=== PATIENT | female | born 1980 | race Caucasian/White ===

== ENCOUNTER → 2018-04-14 | Outpatient (CLI) | payer MEDICAID ==
[2018-02-08 11:19] VITALS: BP 118/91
[~2018-04-14] MED LIST: APIX5TAB PO; BREO ELLIPTA 11 EACH IH; GUAI5SYR PO; Pantoprazole PO
== END | disposition home or self-care (01) ==
LOC: LAB 14:57
PROVIDERS: ATTEND Internal Medicine Critical Care Medicine
DX: I26.99 Other pulmonary embolism without acute cor pulmonale (principal)
CPT/HCPCS: 36415; 85220; 86147

== ENCOUNTER → 2018-05-11 | Outpatient (CLI) | payer MEDICAID ==
[2018-02-08 11:19] VITALS: BP 118/91
[~2018-05-11] MED LIST changes: +AMOX500T PO
--- NOTE | 2018-05-11 15:59 | CARD ---
MR#: [id number] Date of Study: 05/11/2018 Ordering Physician: JAQUELINE CORDON, Referring Physician: JAQUELINE CORDON, Tech: Rosalba Alonzo [facility] APPROVED REPORT EXAM: LIMITED Two-dimensional and M-mode echocardiogram. Other Information Quality : AverageHR: 97bpm Rhythm : NSR INDICATION Follow up RVE post PE in 01/2018 2D DIMENSIONS RVDd3.3 (2.9-3.5cm)IVSd1.1 (0.7-1.1cm) Aortic Root(2D)3.3 (2.0-3.7cm)LVDd4.5 (3.9-5.9cm) PWd0.9 (0.7-1.1cm)LVDs3.2 (2.5-4.0cm) FS (%) 28.1 %SV50.4 ml LVEF(%)54.4 (>50%) LEFT VENTRICLE The left ventricle is normal size. Proximal septal thickening is noted. The left ventricular systolic function is normal. The Ejection Fraction is 55-60%. There is normal LV segmental wall motion. RIGHT VENTRICLE The right ventricle is borderline dilated. There is normal right ventricular wall thickness. The righ t ventricular systolic function is normal. ATRIA The left atrium size is normal. The right atrium size is normal. The interatrial septum is intact wit h no evidence for an atrial septal defect or patent foramen ovale as noted on 2-D or Doppler imaging. AORTIC VALVE The aortic valve is normal in structure and function. The aortic valve is trileaflet. MITRAL VALVE The mitral valve is normal in structure and function. There is no evidence of mitral valve prolapse. There is no mitral valve stenosis. TRICUSPID VALVE The tricuspid valve is normal in structure and function. Doppler and Color Flow revealed no tricuspid valve regurgitation noted. There is no tricuspid valve prolapse or vegetation. There is no tricuspid valve stenosis. GREAT VESSELS The aortic root is normal in size. The IVC is normal in size and collapses >50% with inspiration. PERICARDIAL EFFUSION There is no evidence of significant pericardial effusion. Critical Notification Critical Value: No <Conclusion> Limited 2D echo to assess RV function. The left ventricular systolic function is normal. The Ejection Fraction is 55-60%. There is normal LV segmental wall motion. The right ventricle is borderline dilated. There is no evidence of significant pericardial effusion. Signed by : Micah Alanis, Electronically Approved : 05/11/2018 15:58:38
== END | disposition home or self-care (01) ==
LOC: ECHO 13:58
PROVIDERS: ATTEND Internal Medicine Cardiovascular Disease
DX: I51.7 Cardiomegaly (principal)
CPT/HCPCS: 93308

== ENCOUNTER 2018-07-29 20:11 | Emergency (ER) | payer MEDICAID ==
[~2018-07-29] VITALS: Ht 172.7 cm; Wt 136.1 kg
[~2018-07-29 20:11] MED LIST changes: -AMOX500T PO
[2018-07-29 20:13] VITALS: BP 145/95
--- NOTE | 2018-07-29 21:09 | PHYS DOC ---
Past Medical History Past Medical History: Asthma, Fibromyalgia Additional Past Medical Histor: OSTEOARTHRITIS, CPD (LOPEZ MALDONADO) Past Surgical History: Appendectomy, Tonsillectomy (LOPEZ MALDONADO) Alcohol Use: Occasionally Drug Use: Marijuana (LOPEZ MALDONADO) Adult General Chief Complaint Chief Complaint: DENTAL PROBLEM HPI HPI Patient is a 37 year old female who presents with L upper dental pain that progressively worsened today while at work. She does not currently have a dentist. (LOPEZ MALDONADO) Review of Systems Review of Systems Constitutional: Denies fever or chills HENT: Reports L dental pain. Respiratory: Denies cough or shortness of breath Cardiovascular: Denies chest pain. GI: Denies abdominal pain, nausea, vomiting, bloody stools or diarrhea Musculoskeletal: Denies back pain or joint pain Integument: Denies rash or skin lesions Neurologic: Denies headache, focal weakness or sensory changes All other systems were reviewed and found to be within normal limits, except as documented in this note. (LOPEZ MALDONADO) Current Medications Current Medications Current Medications Medications (Trade) Dose Ordered Sig/Gavin Start Time Stop Time Status Last Admin Dose Admin Amoxicillin (Amoxil) 1,000 mg 1X ONCE 07/29/18 21:15 07/29/18 21:16 DC 07/29/18 21:23 1,000 MG Ibuprofen (Motrin) 800 mg 1X ONCE 07/29/18 21:15 07/29/18 21:16 DC 07/29/18 21:23 800 MG (BRIAN TITUS DO) Allergies Allergies Allergies Coded Allergies Type Severity Reaction Last Updated Verified Sulfa (Sulfonamide Antibiotics) Allergy Intermediate 02/04/18 Yes clavulanic acid Allergy Intermediate 02/04/18 Yes doxycycline Allergy Intermediate 02/04/18 Yes sertraline Allergy Intermediate 02/04/18 Yes (BRIAN TITUS DO) Physical Exam Physical Exam Constitutional: Well developed, well nourished, no acute distress, non-toxic appearance. HENT: Normocephalic, atraumatic, L upper tooth tenderness with carious appearing tooth and mild gum induration. No abscess noted. Neck: Normal range of motion, no tenderness, supple, no stridor. Cardiovascular:Heart rate regular rhythm, no murmur Lungs & Thorax: Bilateral breath sounds clear to auscultation Abdomen: Bowel sounds normal, soft, no tenderness, no masses, no pulsatile masses. Skin: Warm, dry, no erythema, no rash. Back: No tenderness, no CVA tenderness. Extremities: No tenderness, no cyanosis, no clubbing, ROM intact, no edema. Neurologic: Alert and oriented X 3, normal motor function, normal sensory function, no focal deficits noted. Psychologic: Affect normal, judgement normal, mood normal. (LOPEZ MALDONADO) Current Patient Data Vital Signs Vital Signs Date Time Temp Pulse Resp B/P (MAP) Pulse Ox O2 Delivery O2 Flow Rate FiO2 07/29/18 20:13 98.8 109 18 145/95 (112) 99 Room Air 98.8 (BRIAN TITUS DO) EKG EKG [] (LOPEZ MALDONADO) Radiology/Procedures Radiology/Procedures [] (LOPEZ MALDONADO) Course & Med Decision Making Course & Med Decision Making Pertinent Labs and Imaging studies reviewed. (See chart for details) Pt to increase dental hygiene regimen and follow up closely with dentist. (LOPEZ MALDONADO) Dragon Disclaimer Dragon Disclaimer This electronic medical record was generated, in whole or in part, using a voice recognition dictation system. (LOPEZ MALDONADO) Departure Departure Impression: Primary Impression: Dental abscess Disposition: 01 HOME, SELF-CARE Condition: STABLE Referrals: NEELAM CARRASQUILLO MD (PCP) Patient Instructions: Dental Abscess Additional Instructions: Rinse mouth with mouth wash or salt water gargles after eating. Call to scheduled follow up with dentist. Scripts Amoxicillin (AMOXICILLIN) 500 Mg Tablet 2 TAB PO BID, #40 TAB Prov: LOPEZ MALDONADO 07/29/18 Attending Signature Attending Signature I have reviewed the PA/PATROL MOTHER's note and plan of care. I was available for consultation as needed during the patient's visit in the emergency department. I agree with the clinical impression, plan, and disposition. (BRIAN TITUS DO) LOPEZ MALDONADO July 29, 2018 21:09 BRIAN TITUS DO August 03, 2018 14:32
[2018-07-29] MEDS ORDERED: AMOX500T PO (21:11)
[2018-07-29] MEDS ORDERED: IBUPROFEN 400 MG TABLET. PO ONE (21:15)
[2018-07-29] MEDS ORDERED: AMOXICILLIN 250 MG CAPSULE. PO ONE (21:15)
== END 2018-07-29 21:24 | disposition home or self-care (01) ==
LOC: ER 20:11
DX: K04.7 Periapical abscess without sinus (principal); J45.909 Unspecified asthma, uncomplicated; Z88.1 Allergy status to other antibiotic agents; Z88.2 Allergy status to sulfonamides; Z88.8 Allergy status to other drugs, medicaments and biological substances
CPT/HCPCS: 99283

== ENCOUNTER 2019-02-06 21:34 | Emergency (ER) | payer MEDICAID ==
[~2019-02-06] VITALS: Ht 175.3 cm; Wt 136.1 kg
[~2019-02-06 21:34] MED LIST changes: +AMOX500T PO
[2019-02-06 22:40] LABS: BASO % 0 % (0-3); EOS # 0.1 x10^3/uL (0.0-0.7); EOS % 1 % (0-3); HEMOGLOBIN 13.6 g/dL (12.0-15.5); LYMPH # 4.7 x10^3/uL (1.0-4.8); LYMPH % 39 % (24-48); MEAN CORPUSCULAR HEMOGLOBIN 30 pg (25-35); MEAN CORPUSCULAR HGB CONC 34 g/dL (31-37); MEAN CORPUSCULAR VOLUME 89 fL (79-100); MONO # 0.6 x10^3/uL (0.0-1.1); MONO % 5 % (0-9); NEUT # 6.6 x10^3/uL (1.8-7.7); NEUT % 55 % (31-73); PLATELET COUNT 329 x10^3/uL (140-400); RED BLOOD COUNT 4.49 x10^6/uL (3.50-5.40); RED CELL DISTRIBUTION WIDTH 13.2 % (11.5-14.5); WHITE BLOOD COUNT 12.1 x10^3/uL (4.0-11.0)
[2019-02-06 22:47] LABS: PROTHROMBIN TIME PATIENT 11.9 SEC (11.7-14.0)
[2019-02-06 22:50] LABS: CREATININE 0.9 mg/dL (0.6-1.0); GFR 69.3
[2019-02-06 22:54] LABS: D-DIMER 0.5 ug/mlFEU (0.00-0.50)
[2019-02-06 22:56] LABS: ALBUMIN 3.3 g/dL (3.4-5.0); ALBUMIN/GLOBULIN RATIO 0.9 (1.0-1.7); TOTAL BILIRUBIN 0.2 mg/dL (0.2-1.0); TOTAL PROTEIN 6.9 g/dL (6.4-8.2)
[2019-02-06] MEDS ORDERED: CONTRAST GIVEN. MC PRN (23:15)
[2019-02-06] MEDS ORDERED: IOHEXOL 350 MG/ML 100 ML VIAL. IV ONE (23:30)
--- NOTE | 2019-02-07 00:25 | RAD ---
CTA scan of the Chest with Contrast (Pulmonary Embolism protocol) 02/06/2019 Clinical History: Shortness of breath. Tachycardia Technique: After the intravenous administration of 100 cc of Omnipaque 350, contiguous, 0.625 mm axial sections were obtained through the chest. 2 mm axial and 3D MIP coronal and sagittal reconstructed images were obtained. One or more of the following individualized dose reduction techniques were utilized for this study: 1. Automated exposure control. 2. Adjustment of the mA and/or kV according to patient size. 3. Use of iterative reconstruction technique. Findings: No filling defect is seen within the major branches of either pulmonary artery. There is no CT evidence of pulmonary embolism. The heart and thoracic aorta are within normal limits. Minimal dependent subsegmental atelectasis is seen involving both lungs. No area of consolidation, pleural effusion or pneumothorax is seen. Impression: There is no CT evidence of pulmonary embolism. Electronically signed by: Timmy Cook MD (02/07/2019 12:22 AM) [facility]
[2019-02-07 00:40] VITALS: BP 118/59
--- NOTE | 2019-02-07 00:55 | PHYS DOC ---
Past Medical History Past Medical History: Asthma, Fibromyalgia Additional Past Medical Histor: OSTEOARTHRITIS, CPD Past Surgical History: Appendectomy, Tonsillectomy Alcohol Use: Occasionally Drug Use: Marijuana Adult General Chief Complaint Chief Complaint: CHEST PAIN HPI HPI Patient is a 38 year old Female presenting with chief complaint of heart palpitations and shortness of breath or more throughout the evening over the last couple hours she said her heart was really racing before she came in so she wanted to come in to get checked out for A. fib and also she's had blood clots before she was having pleuritic chest pain she was worried about that currently she is feeling a little better EKG shows a normal sinus rhythm with a rate of 80 to incomplete right bundle- branch block no STEMI no obvious ischemia was identified D-dimer was 0.50 this was borderline given her prior visits of bilateral PE we opted to do a CT scan she consented she strongly preferred that actually CT scan was negative for PE we did a second troponin out of an abundance of caution nose also negative reassurance provided and she was discharged in stable condition heart score h 0 e 0 a 0 r 2 t 0 Review of Systems Review of Systems Constitutional: Denies fever or chills [] Eyes: Denies change in visual acuity, redness, or eye pain [] HENT: Denies nasal congestion or sore throat [] Respiratory: GI: Denies abdominal pain, nausea, vomiting, bloody stools or diarrhea [] : Denies dysuria or hematuria [] Musculoskeletal: Denies back pain or joint pain [] Integument: Denies rash or skin lesions [] Neurologic: Denies headache, focal weakness or sensory changes [] Endocrine: Denies polyuria or polydipsia [] All other systems were reviewed and found to be within normal limits, except as documented in this note. Current Medications Current Medications Current Medications Medications (Trade) Dose Ordered Sig/Gavin Start Time Stop Time Status Last Admin Dose Admin Info (CONTRAST GIVEN -- Rx MONITORING) 1 each PRN DAILY PRN 02/06/19 23:15 02/08/19 23:14 Iohexol (Omnipaque 350 Mg/ml) 100 ml 1X ONCE 02/06/19 23:30 02/06/19 23:31 DC 02/06/19 23:45 100 ML Allergies Allergies Allergies Coded Allergies Type Severity Reaction Last Updated Verified Sulfa (Sulfonamide Antibiotics) Allergy Severe 02/06/19 Yes clarithromycin Allergy Severe Nausea and Vomiting 02/06/19 Yes clavulanic acid Allergy Intermediate 02/04/18 Yes doxycycline Allergy Intermediate 02/04/18 Yes meloxicam Allergy Intermediate Diarrhea 02/06/19 Yes sertraline Allergy Intermediate 02/04/18 Yes Physical Exam Physical Exam Constitutional: Well developed, well nourished, no acute distress, non-toxic appearance. [] HENT: Normocephalic, atraumatic, bilateral external ears normal, oropharynx moist, no oral exudates, nose normal. [] Eyes: PERRLA, EOMI, conjunctiva normal, no discharge. [] Neck: Normal range of motion, no tenderness, supple, no stridor. [] Cardiovascular:Heart rate regular rhythm, no murmur [] Lungs & Thorax: Bilateral breath sounds clear to auscultation [] Abdomen: Bowel sounds normal, soft, no tenderness, no masses, no pulsatile masses. [] Skin: Warm, dry, no erythema, no rash. [] Back: No tenderness, no CVA tenderness. [] Extremities: No tenderness, no cyanosis, no clubbing, ROM intact, no edema. [] Neurologic: Alert and oriented X 3, normal motor function, normal sensory function, no focal deficits noted. [] Psychologic: Affect normal, judgement normal, mood normal. [] Current Patient Data Vital Signs Vital Signs Date Time Temp Pulse Resp B/P (MAP) Pulse Ox O2 Delivery O2 Flow Rate FiO2 02/06/19 21:36 98.1 82 22 119/70 (86) 98 Room Air 98.1 Lab Values Laboratory Tests Test 02/06/19 22:30 02/07/19 00:15 White Blood Count 12.1 x10^3/uL (4.0-11.0) H Red Blood Count 4.49 x10^6/uL (3.50-5.40) Hemoglobin 13.6 g/dL (12.0-15.5) Hematocrit 40.0 % (36.0-47.0) Mean Corpuscular Volume 89 fL (79-100) Mean Corpuscular Hemoglobin 30 pg (25-35) Mean Corpuscular Hemoglobin Concent 34 g/dL (31-37) Red Cell Distribution Width 13.2 % (11.5-14.5) Platelet Count 329 x10^3/uL (140-400) Neutrophils (%) (Auto) 55 % (31-73) Lymphocytes (%) (Auto) 39 % (24-48) Monocytes (%) (Auto) 5 % (0-9) Eosinophils (%) (Auto) 1 % (0-3) Basophils (%) (Auto) 0 % (0-3) Neutrophils # (Auto) 6.6 x10^3/uL (1.8-7.7) Lymphocytes # (Auto) 4.7 x10^3/uL (1.0-4.8) Monocytes # (Auto) 0.6 x10^3/uL (0.0-1.1) Eosinophils # (Auto) 0.1 x10^3/uL (0.0-0.7) Basophils # (Auto) 0.0 x10^3/uL (0.0-0.2) Prothrombin Time 11.9 SEC (11.7-14.0) Prothrombin Time INR 0.9 (0.8-1.1) D-Dimer (Viktoria) 0.50 ug/mlFEU (0.00-0.50) Maternal Serum HCG Beta Subunit < 1 mIU/mL (0-5) Sodium Level 138 mmol/L (136-145) Potassium Level 4.0 mmol/L (3.5-5.1) Chloride Level 102 mmol/L (98-107) Carbon Dioxide Level 25 mmol/L (21-32) Anion Gap 11 (6-14) Blood Urea Nitrogen 13 mg/dL (7-20) Creatinine 0.9 mg/dL (0.6-1.0) Estimated GFR (Cockcroft-Gault) 69.3 BUN/Creatinine Ratio 14 (6-20) Glucose Level 103 mg/dL (70-99) H Calcium Level 9.0 mg/dL (8.5-10.1) Total Bilirubin 0.2 mg/dL (0.2-1.0) Aspartate Amino Transferase (AST) 14 U/L (15-37) L Alanine Aminotransferase (ALT) 25 U/L (14-59) Alkaline Phosphatase 57 U/L (46-116) Troponin I Quantitative < 0.017 ng/mL (0.000-0.055) < 0.017 ng/mL (0.000-0.055) Total Protein 6.9 g/dL (6.4-8.2) Albumin 3.3 g/dL (3.4-5.0) L Albumin/Globulin Ratio 0.9 (1.0-1.7) L Laboratory Tests 02/06/19 22:30 Laboratory Tests 02/06/19 22:30 EKG EKG [] Radiology/Procedures Radiology/Procedures [] Impressions: One or more of the following individualized dose reduction techniques were utilized for this study: 1. Automated exposure control. 2. Adjustment of the mA and/or kV according to patient size. 3. Use of iterative reconstruction technique. Findings: No filling defect is seen within the major branches of either pulmonary artery. There is no CT evidence of pulmonary embolism. The heart and thoracic aorta are within normal limits. Minimal dependent subsegmental atelectasis is seen involving both lungs. No area of consolidation, pleural effusion or pneumothorax is seen. Impression: There is no CT evidence of pulmonary embolism. Electronically signed by: Timmy Cook MD (02/07/2019 12:22 AM) [facility] Course & Med Decision Making Course & Med Decision Making Pertinent Labs and Imaging studies reviewed. (See chart for details) [] Dragon Disclaimer Dragon Disclaimer This electronic medical record was generated, in whole or in part, using a voice recognition dictation system. Departure Departure Impression: Primary Impression: Palpitations Disposition: 01 HOME, SELF-CARE Condition: STABLE Patient Instructions: Palpitations, [id number] ABIGAIL ZAMORANO MD Feb 07, 2019 00:55
--- NOTE | 2019-02-07 05:10 | EKG ---
[facility] [address] [place] [address] Test Date: 2019-02-06 Test Time: 21:45:20 Pat Name: RUPESH HUGO Department: Room: Gender: F Pet Care Assistant: : 1980 Requested By: ABIGAIL ZAMORANO Order Number: [id number] Reading MD: Rey Dalal MD Measurements Intervals [place] Rate: 82 P: 10 NV: 170 QRS: 1 QRSD: 90 T: 33 QT: 352 QTc: 414 Interpretive Statements SINUS RHYTHM INCOMPLETE RIGHT BUNDLE BRANCH BLOCK Electronically Signed On 02-07-2019 15:07:34 HEALTHCARE RISK CONTROL CONSULTANT by Rey Dalal MD
--- NOTE | 2019-02-07 06:44 | RAD ---
INDICATION: Shortness of breath COMPARISON: January 2018 FINDINGS: Single view of chest obtained. No focal airspace consolidation. Cardiomediastinal contour unremarkable. No acute osseous abnormality. IMPRESSION: * No focal airspace consolidation or edema. Electronically signed by: Duncan Gomez MD (02/07/2019 6:41 AM) [facility]
== END 2019-02-07 01:00 | disposition home or self-care (01) ==
LOC: ER 21:34
DX: R00.2 Palpitations (principal); R06.02 Shortness of breath; R07.81 Pleurodynia; J45.909 Unspecified asthma, uncomplicated; M79.7 Fibromyalgia; M19.90 Unspecified osteoarthritis, unspecified site; Z88.2 Allergy status to sulfonamides; Z88.1 Allergy status to other antibiotic agents; Z88.8 Allergy status to other drugs, medicaments and biological substances
CPT/HCPCS: 36415; 71045; 71275; 80053; 84484; 84702; 85025; 85379; 85610; 93005; 99285; Q9967

== ENCOUNTER 2019-08-19 15:59 | Emergency (ER) | payer MEDICAID ==
[~2019-08-19] VITALS: Ht 172.7 cm; Wt 136.0 kg
--- NOTE | 2019-08-19 17:22 | PHYS DOC ---
Past Medical History Past Medical History: Asthma, DVT, Fibromyalgia Additional Past Medical Histor: OSTEOARTHRITIS, CPD, DVT/PE JAN 2018 Past Surgical History: Appendectomy, Tonsillectomy Smoking Status: Current Every Day Smoker Alcohol Use: Occasionally Drug Use: Marijuana General Adult EDM: Chief Complaint: LOWER EXT PAIN HPI: HPI: Patient is a 38 year old female with history of DVT to the left lower extremity who presents to the ED today stating she noted swelling to the right lower extremity lateral aspect yesterday. Patient denies any trauma. She says the area was red. Denies any pain to the area. Denies any chest pain or shortness of breath. Denies any recent hospitalization or long air or car travel. She is requesting venous Doppler to rule out DVT to the right lower extremity. Review of Systems: Review of Systems: Constitutional: Denies fever or chills. [] Eyes: Denies change in visual acuity. [] HENT: Denies nasal congestion or sore throat. [] Respiratory: Denies cough or shortness of breath. [] Cardiovascular: Denies chest pain or edema. [] GI: Denies abdominal pain, nausea, vomiting, bloody stools or diarrhea. [] : Denies dysuria. [] Musculoskeletal: Reports right lower extremity swelling. Integument: Denies rash. [] Neurologic: Denies headache, focal weakness or sensory changes. [] Psychiatric: Denies depression or anxiety. [] Heart Score: Risk Factors: Risk Factors: DM, Current or recent (<one month) smoker, HTN, HLP, family history of CAD, obesity. Risk Scores: Score 0 - 3: 2.5% MACE over next 6 weeks - Discharge Home Score 4 - 6: 20.3% MACE over next 6 weeks - Admit for Clinical Observation Score 7 - 10: 72.7% MACE over next 6 weeks - Early Invasive Strategies Allergies: Allergies: Allergies Coded Allergies Type Severity Reaction Last Updated Verified Sulfa (Sulfonamide Antibiotics) Allergy Severe 02/06/19 Yes clarithromycin Allergy Severe Nausea and Vomiting 02/06/19 Yes clavulanic acid Allergy Intermediate 02/04/18 Yes doxycycline Allergy Intermediate 02/04/18 Yes meloxicam Allergy Intermediate Diarrhea 02/06/19 Yes sertraline Allergy Intermediate 02/04/18 Yes Physical Exam: PE: Constitutional: Well developed, well nourished, no acute distress, non-toxic a ppearance. [] HENT: Normocephalic, atraumatic, bilateral external ears normal, oropharynx moist, no oral exudates, nose normal. [] Eyes: PERRLA, EOMI, conjunctiva normal, no discharge. [] Neck: Normal range of motion, no tenderness, supple, no stridor. [] Cardiovascular:Heart rate regular rhythm, no murmur [] Lungs & Thorax: Bilateral breath sounds clear to auscultation [] Abdomen: Bowel sounds normal, soft, no tenderness, no masses, no pulsatile masses. [] Skin: Warm, dry, no erythema, no rash. [] Back: No tenderness, no CVA tenderness. [] Extremities: No tenderness, no cyanosis, no clubbing, ROM intact, chronic +1 bilateral lower extremity edema. +2 bilateral pedal pulses. Right lower ext remity with no obvious redness. Negative Homans sign bilaterally. Neurologic: Alert and oriented X 3, normal motor function, normal sensory function, no focal deficits noted. [] Psychologic: Affect normal, judgement normal, mood normal. [] Current Patient Data: Vital Signs: Vital Signs Date Time Temp Pulse Resp B/P (MAP) Pulse Ox O2 Delivery O2 Flow Rate FiO2 08/19/19 16:04 98.5 112 24 137/70 (92) 96 Room Air 98.5 EKG: EKG: [] Radiology/Procedures: Radiology/Procedures: [] Course & Med Decision Making: Course & Med Decision Making Pertinent Labs and Imaging studies reviewed. (See chart for details) This is a 38-year-old female patient presenting to the ED today with right lower extremity swelling and concern she has a DVT. History of previous DVT to the left lower extremity not on any anticoagulants. Plan terminally read of the right lower extremity venous Doppler is negative. Patient was discharged to home. Compression stockings recommended. Follow-up with primary care doctor in 1 to 2 weeks. Tammy Disclaimer: Tammy Disclaimer: This electronic medical record was generated, in whole or in part, using a voice recognition dictation system. Departure Departure Impression: Primary Impression: Leg edema, left Disposition: HOME, SELF-CARE Condition: STABLE Referrals: NEELAM CARRASQUILLO MD (PCP) follow up in 1-2 weeks Patient Instructions: Edema, [id number] Additional Instructions: Your ultrasound of the right lower extremity is negative for any blood clot. We encourage you to ice and elevate the extremities. Wear compression stockings as tolerated. Follow-up with your doctor in 1 to 2 weeks. Justicifation of Admission Dx: Justifications for Admission: Justification of Admission Dx: N/A TG RODRIGUEZ [employer]Y CLEANER PRESSER Aug 19, 2019 17:22
--- NOTE | 2019-08-19 17:25 | RAD ---
Exam: Right lower extremity venous duplex study INDICATION: Leg swelling TECHNIQUE: Using a combination of real-time ultrasound imaging and color-flow and pulse Doppler imaging techniques along with graded compression and augmentation, duplex evaluation of the deep venous systems of rightlower extremity was performed. Multiple images were obtained. Findings: There is no sonographic evidence for deep venous thrombosis involving the visualized deep venous structures of the right lower extremity. IMPRESSION: No acute DVT in the right lower extremity. Electronically signed by: Maureen Morrissey MD (08/19/2019 5:22 PM) [id number]
[2019-08-19 17:39] VITALS: BP 137/70
== END 2019-08-19 17:37 | disposition home or self-care (01) ==
LOC: ER 15:59
DX: R60.0 Localized edema (principal); J45.909 Unspecified asthma, uncomplicated; M79.7 Fibromyalgia; F17.200 Nicotine dependence, unspecified, uncomplicated; F12.90 Cannabis use, unspecified, uncomplicated; Z86.718 Personal history of other venous thrombosis and embolism; Z90.89 Acquired absence of other organs; Z88.2 Allergy status to sulfonamides; Z88.1 Allergy status to other antibiotic agents; Z88.8 Allergy status to other drugs, medicaments and biological substances; Z88.6 Allergy status to analgesic agent
CPT/HCPCS: 93971; 99284

== ENCOUNTER → 2020-06-14 | Outpatient (CLI) | payer MEDICAID ==
--- NOTE | 2020-06-14 14:53 | CARD ---
MR#: [id number] Date of Study: 06/14/2020 Ordering Physician: JAQUELINE CORDON, Referring Physician: JAQUELINE CORDON, Tech: Fatoumata Vazquez Daniifrancis, [facility] APPROVED REPORT EXAM: Two-dimensional and M-mode echocardiogram with Doppler and color Doppler. Other Information Quality : AverageHR: 77bpm Technically limited study due to Obesity INDICATION Right Ventricular Dilitation RISK FACTORS Smoking 2D DIMENSIONS RVDd3.6 (2.9-3.5cm)Left Atrium(2D)3.2 (1.6-4.0cm) IVSd1.0 (0.7-1.1cm)Aortic Root(2D)3.2 (2.0-3.7cm) LVDd5.1 (3.9-5.9cm)LVOT Diameter2.1 (1.8-2.4cm) PWd0.9 (0.7-1.1cm)LVDs3.6 (2.5-4.0cm) FS (%) 29.3 %SV67.9 ml LVEF(%)56.0 (>50%) Aortic Valve AoV Peak Kash.146.7cm/sAoV VTI26.2cm AO Peak GR.8.6mmHgLVOT Peak Kash.131.1cm/s LVOT VTI 24.85cmAO Mean GR.4mmHg ADELA (VMAX)2.30wp5UOE (VTI)3.29cm2 Mitral Valve MV E Ogulkcnh85.8cm/sMV DECEL VZEZ023ro MV A Lolmcrfh68.4cm/sMV WDZ66jf E/A Ratio1.3MVA (PHT)3.30cm2 TDI E/Lateral E'5.4E/Medial E'5.9 Pulmonary Valve PV Peak Rrldwvqc18.3cm/sPV Peak Grad.4mmHg Tricuspid Valve TR P. Rlqqskjs466yy/sRAP OAKROOMS6uvXk TR Peak Gr.70lrRmSWTV67kmVt Pulmonary Vein S1 Oawixmfb76.1cm/sD2 Osgxbhma03.8cm/s PVa [id number] LEFT VENTRICLE The left ventricle is normal size. There is normal left ventricular wall thickness. The left ventricu lar systolic function is normal and the ejection fraction is within normal range. The Ejection Fracti on is 50-55%. There is normal LV segmental wall motion. The left ventricular diastolic function and f illing is normal for age. RIGHT VENTRICLE The right ventricle is mildly dilated The right ventricle is mildly hypertrophied. The right ventricu lar systolic function is normal. ATRIA The left atrium size is normal. The right atrium is mildly dilated. The interatrial septum is intact with no evidence for an atrial septal defect or patent foramen ovale as noted on 2-D or Doppler imagi ng. AORTIC VALVE The aortic valve is normal in structure and function. Doppler and Color Flow revealed no significant aortic regurgitation. There is no significant aortic valvular stenosis. Calculated aortic valve area is 3.05 cm2 with maximum pressure gradient of 11 mmHg and mean pressure gradient of 5 mmHg. MITRAL VALVE The mitral valve is normal in structure and function. There is no evidence of mitral valve prolapse. There is no mitral valve stenosis. Doppler and Color-flow revealed trace mitral regurgitation. TRICUSPID VALVE The tricuspid valve is normal in structure and function. Doppler and Color Flow revealed trace tricus pid regurgitation with an estimated PAP of 15 mmHg. There is no tricuspid valve stenosis. PULMONIC VALVE The pulmonic valve is not well visualized. Doppler and Color Flow revealed trace pulmonic valvular re gurgitation. There is no pulmonic valvular stenosis. GREAT VESSELS The aortic root is normal in size. The ascending aorta is mildly dilated measuring 3.77 cm. The IVC i s normal in size and collapses >50% with inspiration. PERICARDIAL EFFUSION There is no evidence of significant pericardial effusion. Critical Notification Critical Value: No <Conclusion> The left ventricular systolic function is normal and the ejection fraction is within normal range. Th e Ejection Fraction is 50-55%. There is normal LV segmental wall motion. The right ventricle is mildly dilated The ascending aorta is mildly dilated measuring 3.77 cm. Signed by : Jaqueline Cordon, Electronically Approved : 06/14/2020 14:52:24
== END ==
LOC: ECHO 12:49
PROVIDERS: ATTEND Internal Medicine Cardiovascular Disease
DX: I51.7 Cardiomegaly (principal)
CPT/HCPCS: 93306